=== PATIENT | male | born 1970 | race Caucasian/White ===

== ENCOUNTER → 2020-09-22 | Outpatient (CLI) | payer BC | LOC: EXRD 08:00 | DX: I10 Essential (primary) hypertension (principal); R80.9 Proteinuria, unspecified | CPT/HCPCS: ECHO; 93306 ==

== ENCOUNTER → 2020-09-29 | Outpatient (CLI) | payer BC | LOC: EXRD 08:00 | DX: I10 Essential (primary) hypertension (principal); R80.9 Proteinuria, unspecified; I70.1 Atherosclerosis of renal artery | CPT/HCPCS: 93975 ==